=== PATIENT | female | born 1990 | race Asian ===

== ENCOUNTER → 2017-11-17 | Outpatient (CLI) | payer OTHER ==
[2017-11-17 11:03] LABS: BASOPHIL % 1.5 % (0-2); PLATELET COUNT 224 x10^3mcL (130-400); RED CELL DISTRIBUTION WIDTH 12.7 % (11.5-14.5)
[2017-11-17 11:24] LABS: ALBUMIN 4.2 g/dL (3.4-5.0); ALKALINE PHOSPHATASE 74 U/L (46-116); ALT/SGPT 41 U/L (14-59); AST/SGOT 48 U/L (15-37); BILIRUBIN TOTAL 0.4 mg/dL (0.20-1.00); CALCIUM 8.6 mg/dL (8.5-10.1); CARBON DIOXIDE 30.6 mmol/L (21-32); CHLORIDE SERUM 103 mmol/L (98-107); CREATININE SERUM 0.7 mg/dL (0.6-1.0); GFR1 > 60 mL/min; GLUCOSE SERUM 96 mg/dL (74-106); POTASSIUM SERUM 3.9 mmol/L (3.5-5.1); SODIUM SERUM 140 mmol/L (136-145); TOTAL PROTEIN, SERUM 7.7 g/dL (6.4-8.2); TRIGLYCERIDES 36 mg/dL (<150)
[2017-11-17 11:26] LABS: CHOLESTEROL 119 mg/dL (<200); CHOLESTEROL/HDL RATIO 1.7; HDL CHOLESTEROL 72 mg/dL (40-60)
[2017-11-17 11:29] LABS: FREE T4 1.14 ng/dL (0.76-1.46); FREE THYROXINE INDEX 2.1 ug/dL (1.4-4.5); T4(THYROXINE) 6.5 ug/dL (4.7-13.3)
[2017-11-17 11:31] LABS: T3 TOTAL 1.02 ng/mL
== END | disposition home or self-care (01) ==
LOC: LB 10:40
PROVIDERS: Family Medicine
DX: Z00.00 Encounter for general adult medical examination without abnormal findings (principal)
CPT/HCPCS: 84439

== ENCOUNTER → 2018-09-22 | Outpatient (CLI) | payer OTHER ==
[2018-09-22 18:13] LABS: FREE T4 0.99 ng/dL (0.76-1.46)
[2018-09-24 10:41] LABS: THYROGLOBULIN ANTIBODY < 1.0 IU/mL (0.0-0.9)
== END | disposition home or self-care (01) ==
LOC: LB 16:53
DX: C73 Malignant neoplasm of thyroid gland (principal)
CPT/HCPCS: 84439

== ENCOUNTER → 2019-07-02 | Outpatient (CLI) | payer OTHER | END | disposition home or self-care (01) | LOC: RD 10:55 | DX: Z11.1 Encounter for screening for respiratory tuberculosis (principal); Z92.89 Personal history of other medical treatment ==

== ENCOUNTER → 2020-03-29 | Outpatient (CLI) | payer OTHER | END | disposition home or self-care (01) | LOC: LB 10:07 | PROVIDERS: ATTEND Family Medicine | DX: Z01.419 Encounter for gynecological examination (general) (routine) without abnormal findings (principal); N92.0 Excessive and frequent menstruation with regular cycle ==

== ENCOUNTER → 2020-05-10 | Outpatient (CLI) | payer OTHER | END | disposition home or self-care (01) | LOC: US 09:40 | PROVIDERS: ATTEND Family Medicine | PROC: BG44ZZZ Ultrasonography of Thyroid Gland (ICD-10-PCS; principal; 2020-05-10) | DX: C73 Malignant neoplasm of thyroid gland (principal) | CPT/HCPCS: Q0092 ==